=== PATIENT | male | born 1995 | race Caucasian/White ===

== ENCOUNTER 2017-12-26 12:14 | Emergency (ER) | payer OTHER ==
[~2017-12-26] VITALS: Ht 175.3 cm; Wt 68.0 kg
[~2017-12-26 12:14] MED LIST: ZITHROMAX500 MG PO
--- NOTE | 2017-12-26 12:16 | ED UPPER/LOWER EXTREMITY COMPL ---
History of Present Illness General Chief Complaint: Suture Removal/Wound Recheck Stated Complaint: SUTURE REMOVAL Source: patient Exam Limitations: no limitations Vital Signs & Intake/Output Vital Signs & Intake/Output Vital Signs Date Time Temp Pulse Resp B/P B/P Pulse O2 O2 Flow FiO2 Mean Ox Delivery Rate 12/26 1220 97.1 60 18 120/76 98 Room Air Allergies Coded Allergies: NO KNOWN ALLERGIES (03/04/12) Reconcile Medications Azithromycin (Zithromax) 500 MG TAB 1 TAB PO DAILY PHARYNGITIS Triage Nurses Notes Reviewed? yes Onset: Abrupt Duration: better Timing: recent history Severity: mild Severity Numbers: 1 HPI: Patient's 22-year-old male who presents emergency room in which old records indicate the patient was evaluated here on December 20 for playing basketball and having another player striking his left supraorbital eyebrow region in which he suffered a laceration which #6 sutures were applied. Patient is requesting suture removal and wound evaluation Patient denies any signs of infection swelling or pain or headache or discharge (Abdullahi Reynolds) Past History Travel History Traveled to [place] past 21 day No Medical History Any Pertinent Medical History? none Neurological: NONE EENT: NONE Cardiovascular: NONE Respiratory: NONE Gastrointestinal: NONE Hepatic: NONE Renal: NONE Musculoskeletal: NONE Psychiatric: NONE Endocrine: NONE Surgical History Surgical History: appendectomy Psychosocial History What is your primary language [place] Family History Hx Contributory? No (Abdullahi Reynolds) Review of Systems Review of Systems Constitutional: Reports: no symptoms. EENTM: Reports: no symptoms. Respiratory: Reports: no symptoms. Cardiovascular: Reports: no symptoms. Gastrointestinal/Abdominal: Reports: no symptoms. Genitourinary: Reports: no symptoms. Musculoskeletal: Reports: no symptoms. Skin: Reports: see HPI. Neurological/Psychological: Reports: no symptoms. Hematologic/Endocrine: Reports: no symptoms. Immunological: Reports: no symptoms. All Other Systems: Reviewed and Negative (Abdullahi Reynolds) Physical Exam Physical Exam General Appearance: no apparent distress, alert, comfortable Head: evidence of injury Eyes: Bilateral: normal appearance, PERRL, EOMI. Ears, Nose, Throat: hearing grossly normal Neck: normal inspection, no midline tenderness Cardiovascular/Respiratory: no respiratory distress Neurologic/Tendon: normal sensation, normal motor functions, responds to pain Skin: intact, normal color, warm/dry Comments: Left supra orbit and eyebrow region noted 2 cm well-healing laceration with #6 intact sutures (Abdullahi Reynolds) Progress Differential Diagnosis: contusion, dislocation, DVT, fracture, gout, septic arthritis, sprain, tendon injury Plan of Care: #6 sutures were removed without complications bacitracin was applied no signs of infection on exam Patient denies any symptoms (Abdullahi Reynolds) Departure Departure Disposition: HOME OR SELF CARE Condition: Stable Clinical Impression Primary Impression: Visit for wound check Secondary Impressions: Encounter for removal of sutures Referrals: Ashley CASTELAN,Yousuf Anderson (PCP/Family) Additional Instructions: As discussed begin to apply bacitracin on the wound one more time tomorrow, if you note signs of infection redness, pain, swelling, discharge return to emergency room. Begin to apply [id number] MEDERMA for scar healing in approximately 7-10 days Departure Forms: Customer Survey General Discharge Information (Abdullahi Reynolds) PA/MEDICAL FIELD REPRESENTATIVE Co-Sign Statement Statement: ED Attending supervision documentation- [] I saw and evaluated the patient. I have also reviewed all the pertinent lab results and diagnostic results. I agree with the findings and the plan of care as documented in the PA's/MEDICAL FIELD REPRESENTATIVE's documentation. [X] I have reviewed the ED Record and agree with the PA's/MEDICAL FIELD REPRESENTATIVE's documentation. [] Additions or exceptions (if any) to the PAs/MEDICAL FIELD REPRESENTATIVE's note and plan are summarized below: [] (Ben CASTELAN,Efren Mancilla)
[2017-12-26 12:20] VITALS: BP 120/76
== END 2017-12-26 12:31 ==
LOC: ERH 12:14
DX: Z48.02 Encounter for removal of sutures (principal)